=== PATIENT | male | born 2000 ===

== ENCOUNTER 2022-01-10 18:21 | Emergency (ER) | payer SELFPAY | END 2022-01-10 19:12 | disposition left against medical advice (07) | LOC: ED 18:21 | DX: J02.9 Acute pharyngitis, unspecified (principal); Z53.21 Procedure and treatment not carried out due to patient leaving prior to being seen by health care provider ==

== ENCOUNTER 2022-01-26 17:15 | Emergency (ER) | payer SELFPAY ==
[2022-01-26] MEDS ORDERED: TETRACAINE 0.5% OPHTH SOLN 4ML OS ONE (18:24)
[2022-01-26] MEDS ORDERED: FLUORESCEIN 1 MG STRIP OP ONE (18:24)
--- NOTE | 2022-01-26 18:25 | Emergency Department Report ---
ED General Adult HPI - General Chief complaint: Eye Problems Stated complaint: SOMETHING STUCK IN EYE Time Seen by Provider: 01/26/22 18:21 Source: patient Mode of arrival: Ambulatory Limitations: No Limitations - History of Present Illness Initial comments: 21-year-old male with no significant past medical history reports to the ER with complaints of left eye pain. Patient said he was recently camping about 3 days ago when a tree branch hit his eye. Patient reports since then he has been having eye irritation with foreign body sensation. Patient reports trying to get suspected foreign body out however has been unsuccessful. Patient reports waking up this morning with crusting in his right eye. Patient reports blurry vision in his right eye. Patient reports no other acute signs or symptoms at this time. Patient reports no decrease in vision. Severity scale (0 -10): 8 - Related Data Previous Rx's Medication Instructions Recorded Last Taken Type Acetaminophen/Codeine [Tylenol 1 tab PO Q6H PRN 2 Days #8 tab 01/26/22 Unknown Rx /Codeine # 3 tab] Erythromycin [Erythromycin Ophth 1 applic OD Q6H 7 Days #1 tube 01/26/22 Unknown Rx Oint] Allergies Allergy/AdvReac Type Severity Reaction Status Date / Time No Known Allergies Allergy Unverified 01/26/22 17:39 ED Review of Systems ROS: Stated complaint: SOMETHING STUCK IN EYE Other details as noted in HPI Comment: All other systems reviewed and negative Eyes: eye pain, eye discharge ED Past Medical Hx - Past Medical History Previous Medical History?: No - Surgical History Past Surgical History?: No - Medications Home Medications: Home Medications Medication Instructions Recorded Confirmed Last Taken Type Acetaminophen/Codeine [Tylenol 1 tab PO Q6H PRN 2 Days #8 tab 01/26/22 Unknown Rx /Codeine # 3 tab] Erythromycin [Erythromycin Ophth 1 applic OD Q6H 7 Days #1 tube 01/26/22 Unknown Rx Oint] ED Physical Exam - General Limitations: No Limitations General appearance: alert, in no apparent distress - Head Head exam: Present: atraumatic, normocephalic - Eye Eye exam: Present: normal appearance, PERRL, EOMI, conjunctival injection (Right eye), other (Fluorescein uptake noted in right eyecorneal abrasion present. No foreign body noted.) Pupils: Present: normal accommodation - Expanded Eye Exam Expanded Pupils: Regular, Round: Bilateral, Reactive: Bilateral Sclera/Conjunctival: Injection: Right, Exudate: Right Visual acuity (R) = 20/: 60 Visual acuity (L) = 20/: 80 (both 20/50) - ENT ENT exam: Present: mucous membranes moist - Neck Neck exam: Present: normal inspection - Respiratory Respiratory exam: Present: normal lung sounds bilaterally. Absent: respiratory distress - Cardiovascular Cardiovascular Exam: Present: regular rate, normal rhythm. Absent: systolic murmur, diastolic murmur, rubs, gallop - GI/Abdominal GI/Abdominal exam: Present: soft, normal bowel sounds - Rectal Rectal exam: Present: deferred - Extremities Exam Extremities exam: Present: normal inspection - Back Exam Back exam: Present: normal inspection - Neurological Exam Neurological exam: Present: alert, oriented X3 - Psychiatric Psychiatric exam: Present: normal affect, normal mood - Skin Skin exam: Present: warm, dry, intact, normal color. Absent: rash ED Course Vital Signs 01/26/22 17:39 Temperature 99.8 F H Pulse Rate 89 Respiratory 20 Rate Blood Pressure 132/72 [Right] O2 Sat by Pulse 99 Oximetry ED Medical Decision Making - Medical Decision Making 21-year-old male with no significant past medical history reports to the ER with complaints of left eye pain. Patient said he was recently camping about 3 days ago when a tree branch hit his eye. Patient reports since then he has been having eye irritation with foreign body sensation. Patient reports trying to get suspected foreign body out however has been unsuccessful. Patient reports waking up this morning with crusting in his right eye. Patient reports blurry vision in his right eye. Patient reports no other acute signs or symptoms at this time. Patient reports no decrease in vision. Right eye with corneal abrasion noted, positive fluorescein uptake noted. Injected conjunctive a. Exudate noted. No foreign body noted in right eye. Right eye is 20/60 left eye 2080 both eyes 20/50. Patient sent home with erythromycin eye ointment. And pain medicine for pain control. Patient informed to follow his primary care provider. Patient agrees with plan of care and verbalized understanding. No further evaluation is needed at this time. Vital Signs 01/26/22 01/26/22 17:39 20:01 Temperature 99.8 F H Pulse Rate 89 83 Respiratory 20 12 Rate Blood Pressure 132/72 137/76 [Right] O2 Sat by Pulse 99 99 Oximetry Critical care attestation.: If time is entered above; I have spent that time in minutes in the direct care of this critically ill patient, excluding procedure time. ED Disposition Clinical Impression: Corneal abrasion Qualifiers: Encounter type: initial encounter Laterality: right Qualified Code(s): S05.01XA - Injury of conjunctiva and corneal abrasion without foreign body, right eye, initial encounter Disposition: HOME / SELF CARE / HOMELESS Is pt being admited?: No Condition: Stable Instructions: Corneal Abrasion, [id number] Prescriptions: Erythromycin [Erythromycin Ophth Oint] 1 applic OD Q6H 7 Days #1 tube Acetaminophen/Codeine [Tylenol /Codeine # 3 tab] 1 tab PO Q6H PRN 2 Days #8 tab PRN Reason: Pain , Severe (7-10)
[2022-01-26] MEDS ORDERED: ERYTHROMYCIN 5 MG/1 GM OPHTH OINT OD ONE (19:39)
[2022-01-26 20:02] VITALS: BP 137/76
== END 2022-01-26 20:08 | disposition home or self-care (01) ==
LOC: ED 17:15
DX: S05.01XA Injury of conjunctiva and corneal abrasion without foreign body, right eye, initial encounter (principal); Z79.899 Other long term (current) drug therapy; X58.XXXA Exposure to other specified factors, initial encounter; Y93.89 Activity, other specified; Y92.89 Other specified places as the place of occurrence of the external cause; Y99.8 Other external cause status
CPT/HCPCS: 99282; 99283